=== PATIENT | male | born 1955 | race Caucasian/White ===

== ENCOUNTER → 2019-05-20 | Outpatient (CLI) | payer OTHER | END | disposition home or self-care (01) | LOC: CFH 12:17 | PROVIDERS: ATTEND Nurse Practitioner Family | DX: K40.90 Unilateral inguinal hernia, without obstruction or gangrene, not specified as recurrent (principal); I10 Essential (primary) hypertension | CPT/HCPCS: 76857 ==

== ENCOUNTER → 2019-07-05 | Outpatient (CLI) | payer OTHER ==
[~2019-07-05] MED LIST: BP Med PO; LISI1TAB23 PO; SIMV20TA19 PO
[2019-07-05 09:36] LABS: ALBUMIN 4.1 g/dL (3.4-5.0); ANION GAP 7 mmol/L (5-15); CALCIUM 9.5 mg/dL (8.5-10.1); CHLORIDE 104 mmol/L (98-107)
[2019-07-05 09:41] LABS: ALANINE AMINOTRANSFERASE 27 U/L (12-78); ALKALINE PHOSPHATASE 62 U/L (45-117); BILIRUBIN,TOTAL 0.8 mg/dL (0.2-1.0); CHOL/HDL RATIO 3.4; CHOLESTEROL, TOTAL 195 mg/dL (140-239); CREATININE 1.01 mg/dL (0.7-1.3); HDL CHOL % 30 % (26-37); HDL CHOLESTEROL (DIRECT) 58 mg/dL (40-60); LDL CHOLESTEROL,CALCULATED 106 mg/dL (54-169); LDL/HDL RATIO 1.8 (0.5-3.0); TRIGLYCERIDES 157 mg/dL (50-200); VLDL CHOLESTEROL 31 mg/dL (0-25)
== END | disposition home or self-care (01) ==
LOC: LAB 09:10
PROVIDERS: ATTEND Family Medicine
DX: E78.2 Mixed hyperlipidemia (principal); I10 Essential (primary) hypertension; R73.01 Impaired fasting glucose
CPT/HCPCS: 36415; 80053; 80061; 83036

== ENCOUNTER → 2019-07-05 | Outpatient (CLI) | payer OTHER | END | disposition home or self-care (01) | LOC: STAR 08:12 | PROVIDERS: ATTEND Surgery | DX: Z01.818 Encounter for other preprocedural examination (principal); K40.90 Unilateral inguinal hernia, without obstruction or gangrene, not specified as recurrent | CPT/HCPCS: 93005 ==

== ENCOUNTER 2019-07-10 09:54 | Day surgery (SDC) | payer OTHER ==
[~2019-07-10] VITALS: Ht 170.2 cm; Wt 81.6 kg
[~2019-07-10 09:54] MED LIST changes: +BUPIVACAINE/PF 0.5% ONE; +EPINEPHRINE 1 MG/ML, 1ML ONE; -LISI1TAB23 PO
[2019-07-10] MEDS ORDERED: LACTATED RINGERS 1,000 ML IV SCH (10:14)
[2019-07-10] MEDS ORDERED: LISI1TAB23 PO (10:16)
[2019-07-10 10:31] VITALS: BP 157/103
[2019-07-10] MEDS ORDERED: MIDAZOLAM 1 MG/ML, 2ML ONE (10:52)
[2019-07-10] MEDS ORDERED: FENTANYL PF 250 MCG/5ML ONE (10:52)
[2019-07-10 10:57] VITALS: BP 151/92
[2019-07-10] MEDS ORDERED: PROMETHAZINE 25 MG/ML, 1ML IV PRN (11:00)
[2019-07-10] MEDS ORDERED: HALOPERIDOL 5 MG/ML IV PRN (11:00)
[2019-07-10] MEDS ORDERED: hydrALAzine 20 MG/ML, 1ML IV PRN (11:00)
[2019-07-10] MEDS ORDERED: ACETAMINOPHEN 500 MG TABLET PO ONE (11:00)
[2019-07-10] MEDS ORDERED: MEPERIDINE/PF 25MG/ML,1ML IVPush PRN (11:00)
[2019-07-10] MEDS ORDERED: OXYcodone 5 MG/5 ML ORAL.SOL UDC PO PRN (11:00)
[2019-07-10] MEDS ORDERED: LABETALOL 5MG/ML, 20ML IV PRN (11:00)
[2019-07-10] MEDS ORDERED: GABAPENTIN 300 MG CAPSULE PO ONE (11:00)
[2019-07-10] MEDS ORDERED: CEFAZOLIN 1,000 MG ONE (11:24)
[2019-07-10] MEDS ORDERED: ONDANSETRON 2MG/ML, 2ML ONE (11:24)
[2019-07-10] MEDS ORDERED: GLYCOPYRROLATE 0.2MG/1ML, 5ML ONE (11:24)
[2019-07-10] MEDS ORDERED: PROPOFOL 10 MG/ML, 20ML ONE (11:24)
[2019-07-10] MEDS ORDERED: DEXAMETHASONE 4 MG/ML, 1ML ONE (11:24)
[2019-07-10] MEDS ORDERED: ROCURONIUM 10MG/ML,5ML ONE (11:24)
[2019-07-10] MEDS ORDERED: NEOSTIGMINE 1 MG/ML, 10ML ONE (11:24)
[2019-07-10] MEDS ORDERED: SUCCINYLCHOLINE 20 MG/ML, 10ML ONE (11:24)
[2019-07-10] MEDS ORDERED: NALOXONE 0.4 MG/ML, 1ML ONE (12:29)
[2019-07-10] MEDS ORDERED: FENTANYL PF 100 MCG/2ML ONE (12:44)
[2019-07-10] MEDS ORDERED: OXYcodone 5 MG/5 ML ORAL.SOL UDC ONE (12:45)
[2019-07-10] MEDS: FENTANYL PF 100 MCG/2ML IV PRN ×2 (12:52→13:11)
[2019-07-10] MEDS ORDERED: HYDROmorphone 1 MG/ML, 1ML INJ ONE (13:22)
[2019-07-10] MEDS: HYDROmorphone 2 MG/ML, 1ML IVPush PRN ×2 (13:26→13:34)
[2019-07-10] MEDS ORDERED: MEPERIDINE/PF 25MG/ML,1ML ONE (13:42)
== END 2019-07-10 16:40 | disposition home or self-care (01) ==
LOC: OUT 09:54
PROVIDERS: ATTEND Surgery
DX: K40.90 Unilateral inguinal hernia, without obstruction or gangrene, not specified as recurrent (principal); I10 Essential (primary) hypertension; E78.5 Hyperlipidemia, unspecified; M19.90 Unspecified osteoarthritis, unspecified site; Z79.899 Other long term (current) drug therapy; Z85.828 Personal history of other malignant neoplasm of skin; Z82.49 Family history of ischemic heart disease and other diseases of the circulatory system
CPT/HCPCS: 49650; C1781; J0171; J0330; J0690; J1100; J1170; J2175; J2250; J2310; J2405; J2704; J2710; J3010; J7120; S2900